=== PATIENT | female | born 1995 | race Hispanic/Latino ===

== ENCOUNTER 2025-09-20 19:08 | Emergency (ER) | payer SELFPAY ==
[~2025-09-20] VITALS: Ht 162.6 cm; Wt 57.6 kg
--- NOTE | 2025-09-20 19:23 | ERN ---
ED Note History of Present Illness Stated Complaint: ANXIETY, SYNCOPE, SI Chief Complaint: Multiple Complaints Time Seen by MD: 19:14 Dictation: We will patient comes in with complaint of syncopal episode for during an anxiety attack as well as suicidal ideations. Patient has otherwise been healthy although has had difficulty with anxiety and brief visit visions of suicidality these since she was young. However she has never had any these attempts or hospitalizations in the past. Six weeks ago she was started on fluoxetine for anxiety adhesions. However in the last couple of days she states that she has been having more and more vivid thoughts and images of hanging herself. She was having a discussion with does accept her spouse when she started getting more anxious and hyperventilating. She was in a seated position things for. She then blacked out and syncopized. Spouse is at bedside and states that she slumped over and hit the ground at home and had some shaking episodes. This lasted about 10 seconds and patient woke up. She comes in in a C-collar. Allergies: Coded Allergies: No Known Allergies (Unverified Allergy, Unknown, 09/20/25) Past Medical History Past Medical History: Anxiety, Arrythmia, Depression Surgical History: None LMP: Aug 16, 2025 Review of System Dictation Ten systems reviewed and negative except as noted in HPI Initial Vital Sign VS Vital Signs Date Time Temp Pulse Resp B/P (MAP) Pulse Ox O2 Delivery O2 Flow Rate FiO2 09/20/25 19:11 97.9 79 18 113/68 100 Room Air 0 09/20/25 19:30 21 Physical Exam Dictation GEN: non toxic, NAD HEENT: atrumatic, PERRL, EOMI, conjunctivae normal. No hemotympanum NECK: Soft supple nontender. C-spine cleared clinically Heart RRR, no murmurs Chest: No deformity Lungs: Lungs clear to auscultation Ab: Soft nondistended nontender Back: No midline step-offs. No gross deformity. No CVA tenderness m/s: Moving all four extremities. No gross deformity Neuro: CN 2-12 intact. Moving all four extremities. Psych: Cooperative Results (Laboratory/Radiology) Laboratory/Radiology Laboratory Tests Test 09/20/25 19:31 09/20/25 19:47 Urine Color YELLOW (YELLOW) Urine Appearance CLEAR (CLEAR) Urine pH 5.5 (5.0-8.0) Urine Specific [place] 1.016 (1.001-1.031) Urine Protein 20 mg/dL (NEGATIVE) H Urine Glucose (UA) NEGATIVE mg/dL (NEGATIVE) Urine Ketones 150 mg/dL (NEGATIVE) H Urine Occult Blood NEGATIVE (NEGATIVE) Urine Nitrate NEGATIVE (NEGATIVE) Urine Bilirubin NEGATIVE mg/dL (NEGATIVE) Urine Urobilinogen 0.2 mg/dL (0.2-1.0) Urine Leukocyte Esterase NEGATIVE [place]/uL Urine RBC 2-5 /HPF (0-1) H Urine WBC 2-5 /HPF (0-1) H Urine Squamous Epithelial Cells RARE /HPF (0-2) Urine Bacteria RARE /HPF (None Seen) Urine Opiates Screen NEGATIVE (NEGATIVE) Urine Barbiturates Screen NEGATIVE (NEGATIVE) Urine Phencyclidine Screen NEGATIVE (NEGATIVE) Urine Amphetamines Screen NEGATIVE (NEGATIVE) Urine Benzodiazepines Screen NEGATIVE (NEGATIVE) Urine Cocaine Screen NEGATIVE (NEGATIVE) Urine Marijuana (THC) Screen NEGATIVE (NEGATIVE) White Blood Count 11.9 K/uL (4.8-10.8) H Red Blood Count 4.05 MIL/uL (4.00-5.50) Hemoglobin 12.5 g/dL (12.0-16.0) Hematocrit 38.0 % (36-48) Mean Corpuscular Volume 93.8 fL (79-99) Mean Corpuscular Hemoglobin 30.9 pg (27.0-33.0) Mean Corpuscular Hemoglobin Concent 32.9 g/dL (32.0-36.0) Red Cell Distribution Width 11.3 % (11.0-15.5) Platelet Count 286 K/uL (130-400) Mean Platelet Volume 9.4 fL (7.5-10.5) Immature Granulocyte % (Auto) 0.3 % (0-1) Neutrophils (%) (Auto) 76.4 % (40.0-77.0) Lymphocytes (%) (Auto) 16.9 % (21.0-51.0) L Monocytes (%) (Auto) 4.9 % (3.0-13.0) Eosinophils (%) (Auto) 0.7 % (0.0-8.0) Basophils (%) (Auto) 0.8 % (0.0-5.0) Neutrophils # (Auto) 9.1 K/uL (1.8-7.7) H Lymphocytes # (Auto) 2.0 K/uL (1.0-4.8) Monocytes # (Auto) 0.6 K/uL (0.1-1.0) Eosinophils # (Auto) 0.08 K/uL (0.00-0.70) Basophils # (Auto) 0.09 K/uL (0.00-0.20) Absolute Immature Granulocyte (auto 0.04 K/uL (0-1) Nucleated Red Blood Cells 0.0 % (0.0-0.19) Sodium Level 138 mmol/L (136-145) Potassium Level 3.1 mmol/L (3.5-5.1) L Chloride Level 99 mmol/L (101-111) L Carbon Dioxide Level 23 mmol/L (21-32) Blood Urea Nitrogen 10 mg/dL (7-18) Creatinine 0.7 mg/dL (0.5-1.0) Glomerular Filtration Rate Calc 119 mL/min (>90) Random Glucose 90 mg/dL (70-105) Total Calcium 8.6 mg/dL (8.5-10.1) Total Bilirubin 0.6 mg/dL (0.2-1.0) Aspartate Amino Transf (AST/SGOT) 20 U/L (10-37) Alanine Aminotransferase (ALT/SGPT) 20 U/L (12-78) Alkaline Phosphatase 56 U/L (50-136) Total Protein 7.8 g/dL (6.0-8.3) Albumin 4.3 g/dL (3.5-5.0) Thyroid Stimulating Hormone (TSH) 3.57 uIU/mL (0.36-3.74) Serum Test, Qualitative NEGATIVE (NEGATIVE) Salicylates Level < 2.8 mg/dL (2.8-20.0) L Acetaminophen Level < 1 mcg/mL (10-30) L Serum Alcohol < 3 mg/dL (0-10) Labs Reviewed?: Yes X-RAY Comment: Chest x-ray unremarkable on Radiology read. EXAM: CR Chest, 1 View. CLINICAL HISTORY: syncope COMPARISON: None provided. FINDINGS: LUNGS: There is no mass, infiltrate, or acute pulmonary abnormality. PLEURAL SPACES: No evidence of pleural effusion or pneumothorax. MEDIASTINUM: The cardiomediastinal silhouette is within normal limits. BONES: No aggressive appearing osseous lesion seen. IMPRESSION: 1. No acute cardiopulmonary findings. /[place] ED Course ED Course Orders Procedure Category Date Status Time Cbc With Differential LAB 09/20/25 Complete 19:17 Alcohol, Blood LAB 09/20/25 Complete 19:17 Salicylate LAB 09/20/25 Complete 19:17 Acetaminophen LAB 09/20/25 Complete 19:17 Testing, LAB 09/20/25 Complete Serum Hcg 19:17 Urinalysis Profile LAB 09/20/25 Complete 19:17 Chest 1vw RAD 09/20/25 Resulted 19:17 12 Lead Ekg Tracing- EKG 09/20/25 Complete Technical 19:17 Comprehensive LAB 09/20/25 Complete Metabolic Panel 19:17 Thyroid Stimulating LAB 09/20/25 Complete Hormone 19:53 Drug Screen Urine LAB 09/20/25 Complete 21:09 Vital Signs Date Time Temp Pulse Resp B/P (MAP) Pulse Ox O2 Delivery O2 Flow Rate FiO2 09/21/25 00:15 97.9 82 17 96/59 99 Room Air* 0 09/20/25 23:24 98.1 81 19 124/81 99 Room Air* 0 09/20/25 22:30 98.1 80 17 119/77 98 Room Air* 0 09/20/25 21:30 98.2 74 18 109/64 97 Room Air* 0 09/20/25 20:30 98.1 76 18 110/64 99 Room Air* 0 21 09/20/25 19:30 98.1 77 18 112/68 98 Room Air* 0 09/20/25 19:11 97.9 79 18 113/68 100 Room Air 0 Patient medically cleared for psychiatric eval Medical Decision Making MDM Patient reports hyperventilating quite rapidly prior to syncopal episode. Witnessed by spouse. EKG here unremarkable. Think patient had a vasovagal reaction from hyperventilation. Patient having suicidal ideations. We will do medical clearance and then psych eval. [facility] No criteria for inpatient admission. They will follow up with her tomorrow. Patient in agreement with this plan and feels safe going home. Patient discharged. Procedure Procedure Dictation: EKG Sinus rhythm 80 WI 144 QRS of 92 QTC of 451 normal axis QRS complexes narrow good R-wave progression STT wave segments are otherwise unremarkable. Interpretation normal EKG DX & DISP Disposition: Discharge Departure Impression: Primary Impression: Suicidal ideation Additional Impressions: Syncope, Anxiety Condition: Stable Additional Instructions: Follow up with [facility] for any worsening symptoms, worsening thoughts about wanting to harm herself, not feeling safe at home or for any other concerns Referrals: NONE (PCP) DARSHAN ALVARES MD Sep 20, 2025 19:23
--- NOTE | 2025-09-20 19:39 | EKG ---
[facility] Test Date: 2025-09-20 Test Time: 19:32:35 Pat Name: RADHA VICTOR Department: ED Room: Gender: F Instructional Support Technician: [id number] : 1995 Requested By: DARSHAN ALVARES Order Number: [id number] Reading MD: Nyla Colbert Measurements Intervals [place] Rate: 80 P: 61 [place]: 144 QRS: 59 QRSD: 92 T: 36 QT: 391 QTc: 451 Interpretive Statements Sinus rhythm No previous ECG available for comparison Electronically Signed On 09-21-2025 16:35:25 CDT by Nyla Colbert Please click the below link to view image of tracing.
[2025-09-20 19:40] LABS: APPEARANCE,URINE CLEAR (CLEAR); GLUCOSE, URINE (UA) NEGATIVE (NEGATIVE); LEUKOCYTE ESTERASE ,URINE NEGATIVE Leu/uL (NEGATIVE); NITRATE,URINE NEGATIVE (NEGATIVE); OCCULT BLOOD,URINE NEGATIVE (NEGATIVE)
[2025-09-20 19:48] LABS: ADD UA MICROSCOPIC YES
[2025-09-20 19:49] LABS: SQUAMOUS EPITHELIAL CELL,UR RARE /HPF (0-2)
[2025-09-20 20:03] LABS: IMMATURE GRANULOCYTE ABSOLUTE 0.04 K/uL (0-1); NUCLEATED RED BLOOD CELLS 0.0 % (0.0-0.19); PLATELET COUNT (AUTO) 286 K/uL (130-400); RED BLOOD CELL COUNT(AUTO) 4.05 MIL/uL (4.00-5.50); RED CELL DISTRIBUTION WIDTH 11.3 % (11.0-15.5); WHITE BLOOD COUNT (AUTO) 11.9 K/uL (4.8-10.8)
[2025-09-20 20:12] LABS: CREATININE 0.7 mg/dL (0.5-1.0); GLOMERULAR FILTR. RATE CALC 119 mL/min (>90); GLUCOSE,RANDOM 90 mg/dL (70-105); SODIUM SERUM 138 mmol/L (136-145); UREA NITROGEN, BLOOD 10 mg/dL (7-18)
[2025-09-20 20:27] LABS: ALCOHOL, BLOOD < 3 mg/dL (0-10); ASPARTATE AMINOTRANSFERASE 20 U/L (10-37); TOTAL PROTEIN, SERUM 7.8 g/dL (6.0-8.3)
--- NOTE | 2025-09-20 20:32 | HMCIMG ---
EXAM: CR Chest, 1 View. CLINICAL HISTORY: syncope COMPARISON: None provided. FINDINGS: LUNGS: There is no mass, infiltrate, or acute pulmonary abnormality. PLEURAL SPACES: No evidence of pleural effusion or pneumothorax. MEDIASTINUM: The cardiomediastinal silhouette is within normal limits. BONES: No aggressive appearing osseous lesion seen. IMPRESSION: 1. No acute cardiopulmonary findings. /[place]
[2025-09-20 21:39] LABS: AMPHET/METH SCREEN,URINE NEGATIVE (NEGATIVE); BARBITURATE SCREEN, URINE NEGATIVE (NEGATIVE); CANNABINOID SCREEN,URINE NEGATIVE (NEGATIVE); COCAINE SCREEN,URINE NEGATIVE (NEGATIVE)
--- NOTE | 2025-09-20 21:50 | NUR ---
CORRIE MAINE CONTACTED TO INITIATE SCREENING, SPOKE WITH YAQUELIN WHO WILL CONTACT THE DISPENSING AND MEASURING [employer]ATORY CLINICIAN.
--- NOTE | 2025-09-20 22:49 | NUR ---
Leandro HERRERA, SCREENER WITH [facility] ARRIVAL TO
--- NOTE | 2025-09-21 00:14 | NUR ---
PER TROPICAL SCREENER PT DOES NOT MEET CRITERIA FOR INPATIENT TREATMENT
[2025-09-21 00:15] VITALS: BP 96/59; PULSE 82; RESP 17; TEMP 97.9; O2SAT 99
--- NOTE | 2025-09-21 00:29 | NUR ---
PT TO BE DC AT THIS TIME, NO SIGNS OF ACUTE EMOTIONAL OR PHYSICAL DISTRESS NOTED, VSS, RESP EVEN AND UNLABORED ON RA, DENIES PAIN OR DISCOMFORT, PER PT AND AT BEDSIDE, PT FEELS SAFE FOR DC HOME AFTER NOT MEETING CRITERIA FOR INPATIENT TREATMENT
== END 2025-09-21 00:40 | disposition home or self-care (01) ==
LOC: EDH 19:08
DX: R45.851 Suicidal ideations (principal); R55 Syncope and collapse; F41.9 Anxiety disorder, unspecified; F32.A Depression, unspecified
CPT/HCPCS: 99285; 71045; 84443; 80053; 80305; 84703; 85025; 36415; 93005; 81001; G0481